=== PATIENT | male | born 1970 | race American Indian/Alaskan Native ===

== ENCOUNTER 2017-09-05 18:36 | Emergency (ER) | payer SELFPAY ==
[2017-09-05 19:05] VITALS: BP 138/82
== END 2017-09-06 00:20 | disposition left against medical advice (07) ==
LOC: ED 18:36
DX: R11.2 Nausea with vomiting, unspecified (principal); Z53.21 Procedure and treatment not carried out due to patient leaving prior to being seen by health care provider